=== PATIENT | female | born 1960 | race American Indian/Alaskan Native ===

== ENCOUNTER 2019-01-20 13:54 | Emergency (ER) | payer MEDICARE ==
[2019-01-20] MEDS ORDERED: IBUPROFEN PO ONE (14:39)
[2019-01-20] MEDS ORDERED: NORCO 7.5/325 PO ONE (14:39)
--- NOTE | 2019-01-20 15:44 | XRay Report ---
LEFT KNEE, 3 views: History: Pain after fall. Severe tricompartmental osteoarthritic changes are identified. No evidence for fracture or bone lesion. Small joint effusion is noted. IMPRESSION: Advanced osteoarthritis. No acute process.
--- NOTE | 2019-01-20 15:45 | XRay Report ---
LUMBOSACRAL SPINE, 3 VIEWS: History: Back pain Findings: The vertebral bodies, disk spaces and posterior elements are intact. No compression deformity or malalignment. Moderate multilevel degenerative disc disease and facet arthropathy are noted. The SI joints are symmetric and unremarkable. Impression: Lumbar spondylosis. No evidence for acute injury to the lumbar spine.
--- NOTE | 2019-01-20 16:18 | Emergency Department Report ---
ED Fall HPI - General Chief Complaint: Back Pain/Injury Stated Complaint: CHEST PAIN Time Seen by Provider: 01/20/19 14:30 Source: EMS Mode of arrival: Stretcher - History of Present Illness Initial Comments: Patient is a 58-year-old female who is presenting status post fall. Patient states that she stepped outside of her home into her garage and she tripped and fell. She landed on her left knee and also is having some pain in the right lower back. Patient states she hit the left side of her face but has very minimal pain there. Patient denies actual head injury or loss of consciousness. Patient states pain is 9 out of 10 in severity left knee and a 6 out of 10 in severity of the right lower back. Patient states there was no episodes of syncope or chest pain or shortness of breath before the fall. - Related Data Previous Rx's Medication Instructions Recorded Last Taken Type HYDROcodone/ACETAMINOPHEN 1 each PO Q6HR PRN #12 tablet 01/20/19 Unknown Rx [Hydrocodone-Acetamin 5-325 mg] Ibuprofen [Ibu] 800 mg PO Q8H PRN #20 tablet 01/20/19 Unknown Rx methOCARBAMOL [Robaxin TAB] 500 mg PO Q6H PRN #14 tablet 01/20/19 Unknown Rx Allergies Allergy/AdvReac Type Severity Reaction Status Date / Time No Known Allergies Allergy Unverified 01/20/19 14:25 ED Review of Systems ROS: Stated complaint: CHEST PAIN Other details as noted in HPI Comment: All other systems reviewed and negative ED Past Medical Hx - Past Medical History Hx Hypertension: Yes Hx Pulmonary Embolism: Yes Hx Arthritis: Yes Hx Asthma: Yes Additional medical history: depression - Social History Smoking Status: Never Smoker Substance Use Type: None - Medications Home Medications: Home Medications Medication Instructions Recorded Confirmed Last Taken Type HYDROcodone/ACETAMINOPHEN 1 each PO Q6HR PRN #12 tablet 01/20/19 Unknown Rx [Hydrocodone-Acetamin 5-325 mg] Ibuprofen [Ibu] 800 mg PO Q8H PRN #20 tablet 01/20/19 Unknown Rx methOCARBAMOL [Robaxin TAB] 500 mg PO Q6H PRN #14 tablet 01/20/19 Unknown Rx ED Physical Exam - General Limitations: No Limitations General appearance: alert, in no apparent distress - Head Head exam: Present: atraumatic, normocephalic - Eye Eye exam: Present: normal appearance - ENT ENT exam: Present: mucous membranes moist - Neck Neck exam: Present: normal inspection - Respiratory Respiratory exam: Present: normal lung sounds bilaterally. Absent: respiratory distress, wheezes, rales, rhonchi - Cardiovascular Cardiovascular Exam: Present: regular rate, normal rhythm. Absent: systolic murmur, diastolic murmur, rubs, gallop - GI/Abdominal GI/Abdominal exam: Present: soft, normal bowel sounds - Extremities Exam Extremities exam: Present: normal inspection - Expanded Lower Extremity Exam Left Knee exam: Present: normal inspection (patient is morbidly obese but I'm not able to appreciate any dramatic swelling to the left knee compared to the right), tenderness (patient can almost bend her knee to 90 but not quite. Patient with some generalized tenderness on palpation), full knee extension. Absent: full ROM, abrasion, laceration, ecchymosis, deformity, dislocation, erythema, effusion, pain w/ pronation/supination, posterior draw sign - Back Exam Back exam: Present: normal inspection, tenderness, paraspinal tenderness - Neurological Exam Neurological exam: Present: alert, oriented X3 - Psychiatric Psychiatric exam: Present: normal affect, normal mood - Skin Skin exam: Present: warm, dry, intact, normal color. Absent: rash ED Course Vital Signs 01/20/19 01/20/19 01/20/19 14:16 14:21 14:27 Temperature 98.3 F Pulse Rate 72 Respiratory 20 18 Rate Blood Pressure Blood Pressure 168/57 [Right] O2 Sat by Pulse 94 91 94 Oximetry 01/20/19 01/20/19 14:30 14:46 Temperature Pulse Rate Respiratory Rate Blood Pressure 168/57 163/78 Blood Pressure [Right] O2 Sat by Pulse 89 84 Oximetry ED Medical Decision Making - Radiology Data [facility] [address] [place] [address] XRay Report Signed Patient: YOLANDE BRADY MR#: [id number] : 1960 Acct:[id number] Age/Sex: 58 / F ADM Date: 01/20/19 Loc: ED Attending Dr: Ordering Physician: DO ALARCON MD Date of Service: 01/20/19 Procedure(s): XR knee 3V LT Accession Number(s): [id number] cc: OD ALARCON MD Fluoro Time In Minutes: LEFT KNEE, 3 views: History: Pain after fall. Severe tricompartmental osteoarthritic changes are identified. No evidence for fracture or bone lesion. Small joint effusion is noted. IMPRESSION: Advanced osteoarth ritis. No acute process. Transcribed By: TTR Dictated By: JOSE A OLSON JR, MD Electronically Authenticated By: JOSE A OLSON JR, MD Signed Date/Time: 01/20/191538 DD/ 38 TD/TT: 01/20/191538 [facility] [address] [place] [address] XRay Report Signed Patient: YOLANDE BRADY MR#: [id number] : 1960 Acct:[id number] Age/Sex: 58 / F ADM Date: 01/20/19 Loc: ED Attending Dr: Ordering Physician: DO ALARCON MD Date of Service: 01/20/19 Procedure(s): XR spine lumbosacral 2-3V Accession Number(s): [id number] cc: DO ALARCON MD Fluoro Time In Minutes: LUMBOSACRAL SPINE, 3 VIEWS: History: Back pain Findings: The vertebral bodies, disk spaces and posterior elements are intact. No compression deformity or malalignment. Moderate multilevel degenerative disc disease and facet arthropathy are noted. The SI joints are symmetric and unremarkable. Impression: Lumbar spondylosis. No evidence for acute injury to the lumbar spine. Transcribed By: TTR Dictated By: JOSE A OLSON JR, MD Electronically Authenticated By: JOSE A OLSON JR, MD Signed Date/Time: 01/20/191539 DD/ 39 TD/TT: 01/20/191539 - Medical Decision Making Patient placed in a left knee immobilizer. Patient states she will continue to use her cane for ambulation she also has a motorized scooter. Patient be discharged home with pain meds and follow-up with orthopedics. Critical care attestation.: If time is entered above; I have spent that time in minutes in the direct care of this critically ill patient, excluding procedure time. ED Disposition Clinical Impression: Back strain Qualifiers: Encounter type: initial encounter Qualified Code(s): S39.012A - Strain of muscle, fascia and tendon of lower back, initial encounter Knee effusion Qualifiers: Laterality: left Qualified Code(s): M25.462 - Effusion, left knee Disposition: TO HOME OR SELFCARE Is pt being admited?: No Does the pt Need Aspirin: No Condition: Stable Instructions: Muscle Strain (ED), Knee Effusion (ED) Referrals: SUMANTH VILLAR MD [Staff Physician] - 3-5 Days Time of Disposition: 16:19
[2019-01-20 17:10] VITALS: BP 155/68
== END 2019-01-20 16:45 | disposition home or self-care (01) ==
LOC: ED 13:54
DX: S39.012A Strain of muscle, fascia and tendon of lower back, initial encounter (principal); M25.462 Effusion, left knee; I10 Essential (primary) hypertension; M19.90 Unspecified osteoarthritis, unspecified site; J45.909 Unspecified asthma, uncomplicated; F32.9 Major depressive disorder, single episode, unspecified; Z86.711 Personal history of pulmonary embolism
CPT/HCPCS: 72100; 99283